=== PATIENT | female | born 1975 | race Asian ===

== ENCOUNTER 2017-02-09 16:26 | Emergency (ER) | payer BC ==
[2017-02-09 20:46] VITALS: BP 107/70
== END 2017-02-09 20:46 | disposition home or self-care (01) ==
LOC: ED 16:26
DX: S39.012A Strain of muscle, fascia and tendon of lower back, initial encounter (principal); S90.01XA Contusion of right ankle, initial encounter; S70.11XA Contusion of right thigh, initial encounter; M54.31 Sciatica, right side; V43.52XA Car driver injured in collision with other type car in traffic accident, initial encounter; W22.10XA Striking against or struck by unspecified automobile airbag, initial encounter; Y93.89 Activity, other specified; Y92.488 Other paved roadways as the place of occurrence of the external cause; Y99.8 Other external cause status